=== PATIENT | male | born 1995 | race Caucasian/White ===

== ENCOUNTER 2017-04-08 15:10 | Emergency (ER) | payer BC, OTHER ==
--- NOTE | 2017-04-08 17:35 | ER Document Report ---
ED Cardiac - General Mode of Arrival: Ambulatory Information source: Patient TRAVEL OUTSIDE OF THE [place] IN LAST 30 DAYS: No - HPI Patient complains to provider of: Chest pain, Shortness of breath Use of: Alcohol Was the onset of pain: Sudden Is the pain a: New problem Chest pain location: Substernal Quality of pain: Constant Chest pain precipitating factors: At Rest Associated symptoms: Other - see notes above - General Chief Complaint: Chest Wall Pain Stated Complaint: CHEST PAIN Time Seen by Provider: 04/08/17 17:30 Notes: 21-year-old male with no previous medical history presents to the ED complaining of substernal chest pain that radiates to the left chest and shortness of breath has been present all day. Patient reports that the pain is mildly exacerbated with deep breathing. He was sent over by [facility] for a CT scan to rule out any blood clots. Patient denies taking any hormonal medication. Patient denies any recent trips or surgeries. ([place]) - Related Data Allergies/Adverse Reactions: No Known Allergies Allergy (Verified 04/08/17 15:14) Past Medical History - General Information source: Patient - Social History Smoking Status: Never Smoker Chew tobacco use (# tins/day): Yes Frequency of alcohol use: Social Drug Abuse: None Family History: Reviewed & Not Pertinent Patient has suicidal ideation: No Patient has homicidal ideation: No Renal/ Medical History: Denies: Hx Peritoneal Dialysis Past Surgical History: Reports: Hx Oral Surgery - [place] teeth extraction - Immunizations Immunizations up to date: Yes Review of Systems - Review of Systems Constitutional: No symptoms reported EENT: No symptoms reported Cardiovascular: See HPI, Chest pain Respiratory: See HPI, Short of breath Gastrointestinal: No symptoms reported Genitourinary: No symptoms reported Male Genitourinary: No symptoms reported Musculoskeletal: No symptoms reported Skin: No symptoms reported Hematologic/Lymphatic: No symptoms reported Neurological/Psychological: No symptoms reported -: Yes All other systems reviewed and negative Physical Exam - Vital signs Vitals: Temp Pulse Resp BP Pulse Ox 98.4 F 93 14 142/81 H 97 04/08/17 15:15 04/08/17 15:15 04/08/17 15:15 04/08/17 15:15 04/08/17 15:15 - Notes Notes: GENERAL: Alert, interacts well. No acute distress. HEAD: Normocephalic, atraumatic. EYES: Pupils equal, round, and reactive to light. Extraocular movements intact. ENT: Oral mucosa moist, tongue midline. NECK: Full range of motion. Supple. Trachea midline. LUNGS: Clear to auscultation bilaterally, no wheezes, rales, or rhonchi. No respiratory distress. HEART: Regular rate and rhythm. No murmurs, gallops, or rubs. CHEST: Mild reproducible left chest wall tenderness to palpation. No lesions are visualized. ABDOMEN: Soft, non-tender. Non-distended. Bowel sounds present in all 4 quadrants. EXTREMITIES: Moves all 4 extremities spontaneously. No edema. No cyanosis. NEUROLOGICAL: Alert and oriented x3. Normal speech. PSYCH: Normal affect, normal mood. SKIN: Warm, dry, normal turgor. No rashes or lesions noted. ([place]) Course - Re-evaluation Re-evalutation: 04/08/17 19:47 EKG is nonischemic, no evidence of pericarditis. Chest x-ray shows no acute process. D-dimer is negative. Consistent with costochondritis. Discharged home on NSAIDs. (JOSE BECK) - Vital Signs Vital signs: Temp Pulse Resp BP Pulse Ox 98.0 F 71 17 117/71 99 04/08/17 19:56 04/08/17 19:56 04/08/17 19:56 04/08/17 19:56 04/08/17 19:56 - EKG Interpretation by Me Additional EKG results interpreted by me: 04/08/17 19:47 EKG shows sinus rhythm at a rate of 71, normal axis, normal intervals, no ST segment elevations or depressions, there are isolated T-wave inversions noted in lead III per my interpretation. (JOSE BECK) Discharge - Discharge Clinical Impression: Costochondritis, acute, Situational hypertension Condition: Stable Disposition: HOME, SELF-CARE Additional Instructions: Costochondritis Your chest pain is coming from the rib cartilages in the chest wall. This is often caused by subtle straining of the ribs near the breastbone. The strain can occur from a mild injury, coughing or sneezing with a "cold," vigorous vomiting, or even from rib compression while sleeping. Often the pain doesn't begin until a couple of days after the strain. Persons with arthritis are especially prone to this type of pain, due to inflammation of the cartilage joints near the breast bone. But often, there is no clear reason why it happens. Rest from strenuous physical activity. This kind of chest pain is usually made worse by movement of the chest. Depending on the symptoms, we may prescribe medicine for pain and inflammation. Apply gentle warmth to the painful area for 15 minutes every hour or two. You should call contact the doctor immediately if things change. Further evaluation is needed if you develop a fever or cough, if the nature of the pain changes, or if you become short of breath. Prescriptions: Ibuprofen 800 mg PO TIDP #30 tablet Forms: Elevated Blood Pressure, Return to Work Scribe Attestation: 04/08/17 20:59 I personally performed the services described in the documentation, reviewed and edited the documentation which was dictated to the scribe in my presence, and it accurately records my words and actions. (JOSE BECK) Scribe Documentation - Scribe Written by Govind:: Govind Rainey, 04/08/20172008 acting as scribe for :: Sharyn
--- NOTE | 2017-04-08 18:27 | RADIOLOGY REPORT (SQ) ---
EXAM DESCRIPTION: CHEST PA/LAT COMPLETED DATE/TIME: 04/08/2017 6:16 pm REASON FOR STUDY: chest pain w/deep breath COMPARISON: None. EXAM PARAMETERS: NUMBER OF VIEWS: two views TECHNIQUE: Digital Frontal and Lateral radiographic views of the chest acquired. RADIATION DOSE: NA LIMITATIONS: none FINDINGS: LUNGS AND PLEURA: No opacities, masses or pneumothorax. No pleural effusion. MEDIASTINUM AND HILAR STRUCTURES: No masses or contour abnormalities. HEART AND VASCULAR STRUCTURES: Heart normal size. No evidence for failure. BONES: No acute findings. HARDWARE: None in the chest. OTHER: No other significant finding. IMPRESSION: NO SIGNIFICANT RADIOGRAPHIC FINDING IN THE CHEST. TECHNICAL DOCUMENTATION: JOB ID: [id number] [employer]- All Rights Reserved
[2017-04-08 20:23] VITALS: BP 117/71
--- NOTE | 2017-04-09 08:30 | EKG REPORT ---
SEVERITY:- NORMAL ECG - SINUS RHYTHM : Confirmed by: Jerilyn Woodard 09-Apr-2017 08:29:21
== END 2017-04-08 19:58 | disposition home or self-care (01) ==
LOC: ER 15:10
DX: M94.0 Chondrocostal junction syndrome [Tietze] (principal); I10 Essential (primary) hypertension; R07.89 Other chest pain; R06.02 Shortness of breath
CPT/HCPCS: 36415; 71020; 85379; 93005; 93010; 99284

== ENCOUNTER 2020-01-05 15:55 | Emergency (ER) | payer BC, OTHER ==
--- NOTE | 2020-01-05 17:36 | RADIOLOGY REPORT (SQ) ---
EXAM DESCRIPTION: CHEST SINGLE VIEW COMPLETED DATE/TIME: 01/05/2020 5:27 pm REASON FOR STUDY: fever COMPARISON: Chest films 04/08/2017 EXAM PARAMETERS: NUMBER OF VIEWS: One view. TECHNIQUE: Single frontal radiographic view of the chest acquired. RADIATION DOSE: NA LIMITATIONS: None. FINDINGS: LUNGS AND PLEURA: No opacities, masses or pneumothorax. No pleural effusion. MEDIASTINUM AND HILAR STRUCTURES: No masses. Contour normal. HEART AND VASCULAR STRUCTURES: Heart normal in size. Normal vasculature. BONES: No acute findings. HARDWARE: None in the chest. OTHER: No other significant finding. IMPRESSION: NO ACUTE RADIOGRAPHIC FINDING IN THE CHEST. TECHNICAL DOCUMENTATION: JOB ID: [id number] [employer]- All Rights Reserved Reading location - IP/workstation name: [email or web address]
--- NOTE | 2020-01-05 17:44 | ER Document Report ---
ED General - General Chief Complaint: Cough Stated Complaint: COUGH/SHORTNESS OF BREATH Time Seen by Provider: 01/05/20 16:58 Primary Care Provider: DUY NICHOLE MD [Primary Care Provider] - Follow up as needed Information source: Patient Notes: 24-year-old male arrives by POV with his who is 25 years old and patient reports he began to have fever on Thursday 4 days ago today is . Patient works for [employer] but lives here in [facility]. He reports twice a year he gets sinus problems with runny nose sore throat myalgias and seasonal allergies twice a year. He spoke with his boss today and he advised him to stay at home to at least Thursday or Thursday. Patient denies any exposure otherwise to coronavirus. At this time there is a national and global suspected pandemic with this virus. Patient lives with his grandmother who is 64 years old pxl-vkrpzmy-capqwqejz diabetic on pills and a 4-year-old healthy son. is healthy. Health department evaluated this patient and had a negative strep and negative influenza swab and therefore patient was sent here for a coronavirus test. Patient's chest x-ray is negative. Patient will have CBC CMP urinalysis and legionnaire antigen ordered. TRAVEL OUTSIDE OF THE [place] IN LAST 30 DAYS: No - HPI Onset: Other - 3 days symptoms began on Thursday with fever green productive cough in the morning rhinorrhea sore throat occurring Thursday. He works for [employer] and has seasonal allergies that happened at least twice a year with similar symptoms. - Related Data Allergies/Adverse Reactions: No Known Allergies Allergy (Verified 04/08/17 15:14) Past Medical History - General Information source: Patient - Social History Smoking Status: Never Smoker Cigarette use (# per day): No Chew tobacco use (# tins/day): No Smoking Education Provided: No Frequency of alcohol use: Occasional Drug Abuse: None Lives with: Family, Spouse/Significant other Family History: Reviewed & Not Pertinent Renal/ Medical History: Denies: Hx Peritoneal Dialysis Past Surgical History: Reports: Hx Oral Surgery - [place] teeth extraction - Immunizations Immunizations up to date: Yes Physical Exam - Vital signs Vitals: Temp Pulse Resp BP Pulse Ox 98.1 F 98 14 125/84 98 01/05/20 17:04 01/05/20 17:04 01/05/20 17:04 01/05/20 17:04 01/05/20 17:04 - Notes Notes: Please note this patient was examined with facemask eye ramirez gloves booties and plastic drape for caregivers body. was also mass at the time as well as patient. - HEENT Head: Normocephalic Eyes: Normal Conjunctiva: Normal Cornea: Normal Extraocular movements intact: Yes Eyelashes: Normal Pupils: PERRL Ears: Normal External canal: Normal Tympanic membrane: Normal Nasal: Clear rhinorrhea Mouth/Lips: Normal Mucous membranes: Dry Pharynx: Erythema Neck: Normal - Respiratory Respiratory status: No respiratory distress Chest status: Nontender Breath sounds: Normal Chest palpation: Normal - Cardiovascular Rhythm: Regular Heart sounds: Normal auscultation Murmur: No Friction rub: No Erasmo's crunch: No - Abdominal Inspection: Normal Distension: No distension Bowel sounds: Normal Tenderness: Nontender Organomegaly: No organomegaly - Back Back: Normal - Extremities General upper extremity: Normal inspection General lower extremity: Normal inspection - Neurological Neuro grossly intact: Yes Cognition: Normal Orientation: AAOx4 Weed Coma Scale Eye Opening: Spontaneous Weed Coma Scale Verbal: Oriented Aftab Coma Scale Motor: Obeys Commands Weed Coma Scale Total: 15 Speech: Normal Cranial nerves: Normal Cerebellar coordination: Normal Motor strength normal: LUE - Dorsum, RUE, LLE, RLE - Psychological Associated symptoms: Normal affect - Skin Skin Temperature: Warm Skin Moisture: Dry Course - Vital Signs Vital signs: Temp Pulse Resp BP Pulse Ox 98.1 F 98 14 125/84 98 01/05/20 17:04 01/05/20 17:04 01/05/20 17:04 01/05/20 17:04 01/05/20 17:04 - Laboratory Result Diagrams: 01/05/20 17:34 01/05/20 17:34 Laboratory results interpreted by me: 01/05/20 01/05/20 17:34 17:34 RBC 6.14 H MCV 77 L MCH 25.7 L ALT 69 H - Diagnostic Test Radiology reviewed: Reports reviewed Critical Care Note - Critical Care Note Comments: This case was also discussed with [facility] infectious disease for the hospital Discharge - Discharge Clinical Impression: seasonal bronchitis, Coronavirus screen URI (upper respiratory infection) Qualifiers: URI type: unspecified URI Qualified Code(s): J06.9 - Acute upper respiratory infection, unspecified Condition: Good Disposition: HOME, SELF-CARE Additional Instructions: As per CDC guidelines patient such as yourself and family should self quarantine at this time until proven test negative. Infectious disease for the hospital [facility] will be alerting you should you return positive. Also a test for legionnaires will be run as well. I will write for Zithromax Z-Zelalem and Bactroban nasal and Xofluza been ongoing 20 Prescriptions: Mupirocin [Bactroban 2% Ointment 22 gm] 1 applic NASL HSP PRN 7 Days #1 tube PRN Reason: Azithromycin [Zithromax 250 mg Tablet] 250 mg PO DAILY #6 tab Referrals: DUY NICHOLE MD [Primary Care Provider] - Follow up as needed
[2020-01-05 18:01] LABS: ABSOLUTE BASOPHILS # (AUTO) 0.1 10^3/uL (0.0-0.2); ABSOLUTE EOSINOPHILS # (AUTO) 0.1 10^3/uL (0.0-0.6); ABSOLUTE LYMPHOCYTES (AUTO) 2.5 10^3/uL (0.5-4.7); ABSOLUTE MONOCYTES (AUTO) 0.5 10^3/uL (0.1-1.4); ABSOLUTE NEUT (AUTO) 5.2 10^3/uL (1.7-8.2); BASOPHILS % (AUTO) 1.1 % (0-2); EOSINOPHILS % (AUTO) 1.3 % (0-6); HEMATOCRIT 47.6 % (37.9-51.0); HEMOGLOBIN 15.8 g/dL (13.5-17.0); LYMPHOCYTES % (AUTO) 29.3 % (13-45); MEAN CORPUSCULAR HEMOGLOBIN 25.7 pg (27.0-33.4); MEAN CORPUSCULAR HGB CONC 33.2 g/dL (32.0-36.0); MEAN CORPUSCULAR VOLUME 77 fl (80-97); MONOCYTES % (AUTO) 6.5 % (3-13); PLATELET COUNT 313 10^3/uL (150-450); RED BLOOD COUNT 6.14 10^6/uL (4.35-5.55); RED CELL DISTRIBUTION WIDTH 13.6 % (11.5-14.0); SEGMENTED NEUTROPHILS % (AUTO) 61.8 % (42-78); TOTAL CELLS COUNTED % (AUTO) 100 %; WHITE BLOOD COUNT 8.5 10^3/uL (4.0-10.5)
[2020-01-05 18:09] LABS: APPEARANCE,URINE CLEAR; BILIRUBIN,URINE NEGATIVE (NEGATIVE); COLOR,URINE YELLOW; GLUCOSE, URINE NEGATIVE (NEGATIVE); KETONES,URINE NEGATIVE (NEGATIVE); LEUKOCYTE ESTERASE,URINE NEGATIVE (NEGATIVE); NITRITE,URINE NEGATIVE (NEGATIVE); PROTEIN,URINE NEGATIVE (NEGATIVE); URINE SPECIFIC GRAVITY 1.024; UROBILINOGEN,URINE NEGATIVE mg/dL (<2.0)
[2020-01-05 18:20] LABS: ALBUMIN 4.7 g/dL (3.5-5.0); ALKALINE PHOSPHATASE 97 U/L (38-126); ANION GAP 10 (5-19); ASPARTATE AMINO TRANSFERASE 34 U/L (17-59); BILIRUBIN,DIRECT 0.1 mg/dL (0.0-0.4); BILIRUBIN,TOTAL 0.4 mg/dL (0.2-1.3); BLOOD UREA NITROGEN 14 mg/dL (7-20); CALCIUM 9.6 mg/dL (8.4-10.2); CARBON DIOXIDE 29 mmol/L (22-30); CHLORIDE 103 mmol/L (98-107); GLUCOSE 88 mg/dL (75-110); POTASSIUM 4.6 mmol/L (3.6-5.0); TOTAL PROTEIN 7.9 g/dL (6.3-8.2)
[2020-01-05 19:24] VITALS: BP 103/84
== END 2020-01-05 19:24 | disposition home or self-care (01) ==
LOC: ER 15:55
DX: J06.9 Acute upper respiratory infection, unspecified (principal); J40 Bronchitis, not specified as acute or chronic; Z20.828 Contact with and (suspected) exposure to other viral communicable diseases
CPT/HCPCS: 36415; 71045; 80053; 81001; 85025; 86713; 87040; 87635; 99283

== ENCOUNTER → 2020-05-22 | Outpatient (CLI) | payer OTHER ==
[~2020-05-22] MED LIST: AMPICILLIN SODIUM 2 GM in NORMAL SALINE 100 ML IV PRN
== END ==
LOC: OD 15:45 → EDSTATUS 05-29 09:15
PROVIDERS: ATTEND Otolaryngology
DX: Z03.818 Encounter for observation for suspected exposure to other biological agents ruled out (principal)
CPT/HCPCS: 87635; C9803; J0290; J7050

== ENCOUNTER 2020-06-06 12:01 | Day surgery (SDC) | payer OTHER ==
[~2020-06-06 12:01] MED LIST changes: +DEXAMETHASONE SOD PHOSPHATE INJ 4 MG/1 ML VIAL ONE; +ONDANSETRON HCL INJ/PF 4 MG/2 ML SDV ONE; +SUCCINYLCHOLINE CHLORIDE INJ 200 MG/10 ML VIAL ONE
[2020-06-06] MEDS ORDERED: BACITRACIN ZINC OINTMENT 15 GM ONE (14:52)
[2020-06-06] MEDS ORDERED: OXYMETAZOLINE HCL 0.05% NASAL SPRAY 15 ML BOTTLE ONE (14:52)
[2020-06-06] MEDS ORDERED: FENTANYL CITRATE INJ/PF 100 MCG/2 ML AMPUL ONE (15:02)
[2020-06-06] MEDS ORDERED: MIDAZOLAM 2 MG/2 ML INJ ONE (15:03)
[2020-06-06] MEDS ORDERED: PROPOFOL INJ 200 MG/20 ML VIAL IV ONE (15:04)
[2020-06-06] MEDS ORDERED: MORPHINE SULFATE 10 MG/ML INJ IV PRN (15:34)
[2020-06-06] MEDS ORDERED: DIPHENHYDRAMINE HCL 50 MG/ML VIAL IV PRN (15:34)
[2020-06-06] MEDS ORDERED: FENTANYL CITRATE INJ/PF 100 MCG/2 ML AMPUL IV PRN (15:34)
--- NOTE | 2020-06-06 15:51 | Operative Report ---
Operative Report[facility] Operative Report: Date: 06 June 2020 History: 24-year-old male with a history of chronic tonsillitis, presents today for tonsillectomy. Informed sent was obtained from the patient Pre-operative diagnosis: 1. Chronic Tonsillitis Post operative diagnosis: Same as above Procedure: Tonsillectomy Surgeon: Eugenio Fuentes MD, FACS, [facility] Anesthesia: General via Endotrachreal intubation Procedure: After receiving informed consent, the patient was brought to the operating room and placed supine on the operating table. After successful induction and intubation by anesthesia the patient was turned 90 degrees and placed in Trendelenburg. A shoulder roll was placed along with a head drape. A McIvor mouth gag was inserted atraumatically into the oral cavity and opened up. The soft palate was palpated and found to be normal. Red rubber catheters were inserted down each nasal cavity and brought out to elevate the soft palate. Attention was then directed to the tonsils. The right tonsil was grasped with tenaculum and retracted medially. Using Bovie electrocautery the right tonsil was dissected free from its tonsillar fossa . Hemostasis was obtained using suction Bovie electrocautery. A similar procedure was performed on the left side. Both tonsils were removed. The tonsils were 2+ and cryptic. The oral pharynx and the oral cavity were irrigated with copious amounts of normal saline, without evidence of bleeding. An orogastric tube was inserted into the stomach to aspirate gastric contents. The McIvor mouthgag was then released and reopened, the surgical bed was dry without evidence of bleeding. The McIvor mouth gag along with the red catheters were removed from the patient. The patient was then returned back to anesthesia who successfully extubated the patient. Estimated blood loss: 5 mL Fluids: 500 mL The patient was then transported to the Post Anesthesia Care Unit in stable condition with spontaneous respiration. No complication.
[2020-06-06] MEDS: FENTANYL CITRATE INJ/PF 100 MCG/2 ML AMPUL ONE ×2 (16:00→16:20)
[2020-06-06] MEDS ORDERED: HYDROCOD/ACETAMIN 7.5-325 MG/15 ML ORAL SOLN UDCUP PO PRN (16:10)
[2020-06-06] MEDS ORDERED: ONDANSETRON HCL INJ/PF 4 MG/2 ML SDV IV PRN (16:15)
[2020-06-06] MEDS ORDERED: HYDROCOD/ACETAMIN 7.5-325 MG/15 ML ORAL SOLN UDCUP ONE (16:48)
[2020-06-06 17:41] VITALS: BP 136/82
== END 2020-06-06 17:50 | disposition home or self-care (01) ==
LOC: OROUT 12:01
PROVIDERS: ATTEND Otolaryngology
DX: J35.1 Hypertrophy of tonsils (principal); J35.8 Other chronic diseases of tonsils and adenoids; Z87.891 Personal history of nicotine dependence
CPT/HCPCS: 88304 ×2; 42826; J0290; J2250; J3490 ×2; J1100; J3010; J0330; J2405; J7050; J2704; 170

== ENCOUNTER 2020-06-18 23:41 | Emergency (ER) | payer OTHER ==
[2020-06-18 23:48] VITALS: BP 120/81
--- NOTE | 2020-06-19 00:19 | ER Document Report ---
ED ENT - General Chief Complaint: GI Bleeding Stated Complaint: COUGHING BLOOD/TONSIL OPPERATION X2WKS AGO Time Seen by Provider: 06/19/20 00:14 Primary Care Provider: UMA FUENTES MD [ACTIVE STAFF] - 06/19/20 Notes: Patient is a 24-year-old male that comes emergency department for chief complaint of bleeding after tonsillectomy was performed by Dr. Warner on 06/06/2020. Patient states he has been fine for the past 2 weeks, he states that he suddenly sneezed this evening and afterwards he started bleeding. He states he was spitting out blood for about 10 to 15 minutes and then this spontaneously stopped. He states he has been spitting some out since that was clear, he did not vomit, he denies any current symptoms, he denies sensation of bleeding currently. He is not on a blood thinner, he is only on liquid oxycodone and lidocaine spray. He denies any other complaints including dizziness, sore throat, shortness of breath, difficulty swallowing or breathing. TRAVEL OUTSIDE OF THE [place] IN LAST 30 DAYS: No - Related Data Allergies/Adverse Reactions: No Known Allergies Allergy (Verified 06/19/20 00:04) Home Medications: PERCOCET. LIDOCIANE Past Medical History - General Information source: Patient - Social History Smoking Status: Never Smoker Frequency of alcohol use: Occasional Drug Abuse: None Lives with: Family Family History: Reviewed & Not Pertinent - Past Medical History Cardiac Medical History: Denies: Hx Coronary Artery Disease, Hx Heart Attack, Hx Hypertension Pulmonary Medical History: Denies: Hx Asthma, Hx Bronchitis, Hx Pneumonia Neurological Medical History: Denies: Hx Cerebrovascular Accident, Hx Seizures Renal/ Medical History: Denies: Hx Peritoneal Dialysis GI Medical History: Denies: Hx Hepatitis, Hx Hiatal Hernia, Hx Ulcer Musculoskeletal Medical History: Denies Hx Arthritis Infectious Medical History: Denies: Hx Hepatitis Past Surgical History: Reports: Hx Oral Surgery - [place] teeth extraction, Hx Tonsillectomy. Denies: Hx Open Heart Surgery, Hx Pacemaker - Immunizations Immunizations up to date: Yes Hx Diphtheria, Pertussis, Tetanus Vaccination: Yes Review of Systems - Review of Systems Constitutional: No symptoms reported EENT: See HPI Cardiovascular: No symptoms reported Respiratory: No symptoms reported Gastrointestinal: No symptoms reported Genitourinary: No symptoms reported Male Genitourinary: No symptoms reported Musculoskeletal: No symptoms reported Skin: No symptoms reported Hematologic/Lymphatic: No symptoms reported Neurological/Psychological: No symptoms reported Physical Exam - Vital signs Vitals: Temp Pulse Resp BP Pulse Ox 97.9 F 70 17 120/81 100 06/18/20 23:47 06/18/20 23:47 06/18/20 23:47 06/18/20 23:47 06/18/20 23:47 - Notes Notes: GENERAL: Alert, interacts well. No acute distress. HEAD: Normocephalic, atraumatic. EYES: Pupils equal, round, and reactive to light. Extraocular movements intact. ENT: Oral mucosa moist, tongue midline. There appears to be a probable clot but no current bleeding in the left posterior pharynx, no blood down the posterior pharynx currently noted, uvula unremarkable, airway patent. Nares patent, sinuses non-tender, ear canals unremarkable, TM's intact. NECK: Full range of motion. Supple. Trachea midline. No lymphadenopathy. LUNGS: Clear to auscultation bilaterally, no wheezes, rales, or rhonchi. No respiratory distress. Non-tender chest wall. HEART: Regular rate and rhythm. No murmur EXTREMITIES: Moves all 4 extremities spontaneously. No edema, normal radial and dorsalis pedis pulses bilaterally. No cyanosis. BACK: no cervical, thoracic, lumbar midline tenderness. No saddle anesthesia, normal distal neurovascular exam. Moves all extremities in full range of motion. NEUROLOGICAL: Alert and oriented x3. Normal speech. Cranial nerves II through X II grossly intact. Strength 5/5 in all extremities. PSYCH: Normal affect, normal mood. SKIN: Warm, dry, normal turgor. No rashes or lesions noted. Course - Re-evaluation Re-evalutation: Patient is not currently bleeding on my exam, I can see where he was probably bleeding from in the left posterior pharynx. Patient denies sensation of blood, he has not vomited, he has no current complaints. Vital signs unremarkable. Spoke with Dr. Gonzalez, we do not have ENT satellite installation technician, however I will attempt to speak to his surgeon. I spoke to the profile saw setup operator, they state that they do have contact information for Dr. Fuentes, we did call and I left a message. However profile saw setup operator did find that surgeon is satellite installation technician between the hours of 7 AM and 9 PM, this is a couple of hours past that time. I did await callback but we were unable to receive this which was not surprising given the information that we found, I reevaluated patient, patient has been monitored here for an extended period and has not had any rebleeding, he is still has no current complaints. Patient is requesting to leave. I discussed with Dr. Gonzalez again, patient will be discharged with precautions and strict return precautions which I discussed in detail. He will call his ENT in the morning. Patient states understanding and agreement, stable and well-appearing at time of discharge. - Vital Signs Vital signs: Temp Pulse Resp BP Pulse Ox 97.9 F 70 17 120/81 100 06/18/20 23:47 06/18/20 23:47 06/18/20 23:47 06/18/20 23:47 06/18/20 23:47 Discharge - Discharge Clinical Impression: Post-tonsillectomy hemorrhage Condition: Stable Disposition: HOME, SELF-CARE Additional Instructions: Fortunately the area stopped bleeding on its own. Please call Dr. Fuentes today to be seen in the office for close follow-up and additional management. Return if you worsen including returned/heavy bleed, vomiting blood, difficulty swallowing or breathing, dizziness, or any other concerning symptoms. Referrals: UMA FUENTES MD [ACTIVE STAFF] - 06/19/20
== END 2020-06-19 02:29 | disposition home or self-care (01) ==
LOC: ER 23:41
DX: R04.2 Hemoptysis (principal); Z90.89 Acquired absence of other organs; R06.7 Sneezing
CPT/HCPCS: 99282